=== PATIENT | male | born 2000 | race Caucasian/White ===

== ENCOUNTER → 2021-05-05 10:35 | Outpatient (CLI) | payer SELFPAY ==
--- NOTE | 2021-05-05 15:15 | DI.RAD_ITS ---
Exam(s) XR HAND RT COMPLETE EXAM: XR HAND RT COMPLETE CLINICAL HISTORY: injury right hand, 5th metacarpal pain r/o fx. [id number]. TECHNIQUE: 2D digital imaging was performed. COMPARISON: No exams were available for comparison FINDINGS: There is an acute transverse fracture of the midshaft of the right 5th metacarpal. There is volar an gulation of the fracture distally. There is 2 mm of displacement of the distal fracture medially. T here is associated soft tissue swelling. No other fracture or dislocation is seen. IMPRESSION: Displaced and angulated right 5th metacarpal fracture. DATA REPOSITORY: RADIATION DOSE DELIVERED:
--- NOTE | 2021-05-05 16:26 | DI.VRAD_ITS ---
PROCEDURE INFORMATION: Exam: XR Right Hand Exam date and time: 05/05/2021 3:42 PM Age: 21 years old Clinical indication: Pain; Hand; Right TECHNIQUE: Imaging protocol: XR Right hand. Views: 3 or more views. COMPARISON: No relevant prior studies available. FINDINGS: Bones/joints: Acute fracture involving the mid aspect of the 5th metacarpal with mild ulnar displacement of the major distal fracture fragment. Soft tissues: Soft tissue swelling. IMPRESSION: Acute fracture involving the mid aspect of the 5th metacarpal with mild ulnar displacement of the major distal fracture fragment. Dictated and Authenticated by: Meet Cotton MD. Ordering:JOE Ruiz MD
== END ==
PROVIDERS: Visit Provider Physician Assistant
DX: S62.306A Unspecified fracture of fifth metacarpal bone, right hand, initial encounter for closed fracture (principal); S52.601A Unspecified fracture of lower end of right ulna, initial encounter for closed fracture; X58.XXXA Exposure to other specified factors, initial encounter
CPT/HCPCS: 73130

== ENCOUNTER 2021-05-06 15:36 | Outpatient (CLI) | payer OTHER, SELFPAY ==
--- NOTE | 2021-05-06 14:00 | DI.RAD_ITS ---
Exam(s) XR HAND RT COMPLETE EXAM: XR HAND RT COMPLETE INDICATION: f/u fracture. COMPARISON: CR,XR XR HAND RT COMPLETE from 05/05/2021 TECHNIQUE: 2D digital imaging was performed. FINDINGS: Ulnar sided splint is seen. The fracture of the 5th metacarpal is again noted which shows slightly l ess ventral angulation compared with previous exam. Some dorsal soft tissue swelling remains present . DATA REPOSITORY: RADIATION DOSE DELIVERED:
== END 2021-05-06 15:37 | disposition home or self-care (01) ==
LOC: DIORS 15:37
PROVIDERS: Visit Provider Physician Assistant Surgical
DX: S62.306D Unspecified fracture of fifth metacarpal bone, right hand, subsequent encounter for fracture with routine healing (principal); W55.22XD Struck by cow, subsequent encounter
CPT/HCPCS: 73130

== ENCOUNTER 2021-05-13 08:39 | Outpatient (CLI) | payer OTHER, SELFPAY ==
--- NOTE | 2021-05-13 08:15 | DI.RAD_ITS ---
Exam(s) XR HAND RT LIMITED EXAM: XR HAND RT LIMITED CLINICAL HISTORY: follow up. TECHNIQUE: 2D digital imaging was performed. COMPARISON: CR,XR XR HAND RT COMPLETE from 05/05/2021 CR XR HAND RT COMPLETE from 05/06/2021 FINDINGS: On these in cast views the transverse fracture site at the midshaft of the 5th metacarpal is again no karina. Fracture line still evident. Appearance is unchanged from 05/06/2021. IMPRESSION: DATA REPOSITORY: RADIATION DOSE DELIVERED:
== END 2021-05-13 08:40 | disposition home or self-care (01) ==
LOC: DIORS 08:39
PROVIDERS: Visit Provider Physician Assistant Surgical
DX: S62.326D Displaced fracture of shaft of fifth metacarpal bone, right hand, subsequent encounter for fracture with routine healing (principal); X58.XXXD Exposure to other specified factors, subsequent encounter
CPT/HCPCS: 73120